=== PATIENT | female | born 1995 | race Caucasian/White ===

== ENCOUNTER 2020-02-21 07:10 | Emergency (ER) | payer MEDICAID ==
[~2020-02-21] VITALS: Ht 167.6 cm; Wt 74.8 kg
[2020-02-21 07:11] VITALS: BP 133/81
--- NOTE | 2020-02-21 07:15 | NUR ---
PT C/O RUNNY NOSE AND SOB FOR 4 DAYS, PRODUCTIVE COUGH SINCE YESTERDAY, WHEEZINGS SINCE THIS MORNING. DENIES FEVER, BODY ACHES, N/V/D. PMH: ASTHMA
--- NOTE | 2020-02-21 08:05 | NUR ---
NOVEL SWAB COLLECTED AND SENT TO THE LAB.
[2020-02-21 08:13] VITALS: BP 128/78
--- NOTE | 2020-02-21 08:13 | NUR ---
Patient discharged with v/s stable. Written and verbal after care instructions given and explained. Patient alert, oriented and verbalized understanding of instructions. Ambulatory with steady gait. All questions addressed prior to discharge. ID band removed. Patient advised to follow up with PMD. Rx of Aerochamber plus with mask, Albuterol, and Prednisone given. Patient educated on indication of medication including possible reaction and side effects. Opportunity to ask questions provided and answered.
== END 2020-02-21 08:13 | disposition home or self-care (01) ==
LOC: MED 07:10
DX: J45.909 Unspecified asthma, uncomplicated (principal); R03.0 Elevated blood-pressure reading, without diagnosis of hypertension; N80.9 Endometriosis, unspecified; Z20.828 Contact with and (suspected) exposure to other viral communicable diseases
CPT/HCPCS: 99283; U0003